=== PATIENT | female | born 1980 | race Caucasian/White ===

== ENCOUNTER 2019-05-25 16:48 | Outpatient (CLI) | payer OTHER, SELFPAY ==
--- NOTE | ~2019-05-25 | XR_ITS ---
EXAMINATION: XR chest 2V DATE: 05/25/2019 17:21 INDICATION: Shortness of breath and productive cough TECHNIQUE: PA and lateral views of the chest are obtained. COMPARISON: None available FINDINGS: The lungs are free of acute opacities. There is no pleural effusion or pneumothorax. The ca rdiomediastinal silhouette is normal. The visualized bones and soft tissues are unremarkable. IMPRESSION: 1. No acute cardiopulmonary abnormality. Reviewed, dictated and finalized at location A.
== END 2019-05-25 16:49 | disposition home or self-care (01) ==
PROVIDERS: Visit Provider Obstetrics & Gynecology
DX: R06.02 Shortness of breath (principal)
CPT/HCPCS: 71046

== ENCOUNTER 2019-06-04 13:39 | Observation (INO) | payer OTHER, SELFPAY ==
[2019-06-04] VITALS (43 sets, daily range): BP systolic 101–134; BP diastolic 61–75; PULSE 67–95; TEMP 36.7–37.1; O2SAT 96–100; BMI 47.7
--- NOTE | ~2019-06-04 | US_ITS ---
EXAMINATION: US OB limited w BPP DATE: 06/05/2019 08:20 INDICATION: decelerations during third trimester TECHNIQUE: Real-time pelvic ultrasound was performed. The interpreting radiologist was not present fo r the study. COMPARISON: None. FINDINGS: There is a single living fetus in vertex presentation. The placenta is fundal. heart rate is 13 8 beats per minute (bpm). The amniotic fluid index is 8.9 cm which is normal Biophysical profile performed by the technologist: breathing (30 sec sustained breathing in 30 minutes): 2 out of 2 movement (3 gross body movements in 30 minutes): 2 out of 2 tone (one episode of hkkuvzg-mvkzypkya-rwnrcyr limb movement): 2 out of 2 Amniotic fluid pocket (2 cm): 2 out of 2 Total score: 8 out of 8 IMPRESSION: 1. Single living fetus in vertex presentation. 2. Biophysical profile 8 out of 8. 3. Normal amniotic fluid index. Reviewed, dictated and finalized at location B.
--- NOTE | ~2019-06-04 | US_ITS ---
EXAMINATION: US OB limited w BPP DATE: 06/04/2019 15:25 INDICATION: Decelerations. Third trimester. TECHNIQUE: Real-time pelvic ultrasound was performed. COMPARISON: None. FINDINGS: There is a single living fetus in vertex presentation. The placenta is fundal. heart rate is 1 25 beats per minute (bpm). The amniotic fluid index is 16.6 cm, which is normal. Biophysical profile performed by the technologist: breathing (30 sec sustained breathing in 30 minutes): 2 out of 2 movement (3 gross body movements in 30 minutes): 2 out of 2 tone (one episode of wegfxsp-somlweutg-etufzae limb movement): 2 out of 2 Amniotic fluid pocket (2 cm): 2 out of 2 Total score: 8 out of 8 IMPRESSION: 1. Single living fetus in vertex presentation. 2. Biophysical profile 8 out of 8. Reviewed, dictated and finalized at location A.
--- NOTE | 2019-06-04 15:59 | PC.NURSE ---
[id number] US at bedside to perform BPP and FÉLIX
--- NOTE | 2019-06-04 17:24 | OBADM ---
This patient, Ally Ohara, admitted to the OB room Labor/Delivery/Recovery 102 for observation. Patient/family oriented to hospital policies and general routines including ID bracelet, bed and alarms, visiting hours, pain management, procedures, bathroom and other care routines, personal items, smoking policy, room service/diet, and visiting hours. Patient/Family are encouraged to report perceived risks to care and to ask questions if they do not understand what they are told or what they should do.
[2019-06-04 20:40] LABS: Glucose Point of Care 128 (65-105)
[2019-06-04] MEDS: BETAMETHASONE SOD PHOS/ACETATE 30 MG/5 ML VIAL 12 MG IM (21:57)
[2019-06-05] VITALS (264 sets, daily range): BP systolic 122–141; BP diastolic 82–91; PULSE 56–118; TEMP 36.9–37.1; O2SAT 90–100
[2019-06-05 07:17] LABS: Glucose Point of Care 95 (65-105)
--- NOTE | 2019-06-05 07:46 | WPDPN ---
Progress Note: A&P Assessment and Plan (1) Antepartum variable deceleration: Code(s): O36.8390 - Maternal care for abnormalities of the heart rate or rhythm, unspecified trimester, not applicable or unspecified Status: Acute Assessment and Plan: G1 at 34+3 with occasional decelerations (4 in last 16 hours or so). Since she is at risk for delivery, she is getting a course of steroids for lung maturity. First dose about 06/03. Plan to keep until second dose of steroids tonight. Repeat BPP and FÉLIX today. If status reassuring throughout today, will discharge home tonight. Next appointment in the office Wednesday 06/07 so keep that. Time Spent With Patient Time with patient: less than 15 minutes Review of Systems Review of Systems: All systems reviewed & are unremarkable except as noted in HPI and below Exam Const: General: no acute distress GI: Inspection: non-distended GI Palp: Yes Soft to palpation and No Tenderness to palpation present (GI) Other: gravid Extrem: General: no edema Psych: Mental Status: mental status grossly normal Objective Data Vital Signs Vital Signs: Vital Signs - 24 hr 06/04/19 14:04 06/04/19 14:31 06/04/19 15:01 Temperature Pulse Rate 79 67 70 Blood Pressure 122/75 113/72 113/75 Pulse Oximetry 06/04/19 15:31 06/04/19 16:01 06/04/19 16:30 Temperature Pulse Rate 76 68 74 Blood Pressure 114/71 108/71 101/64 Pulse Oximetry 06/04/19 18:00 06/04/19 19:01 06/04/19 20:00 Temperature Pulse Rate 83 77 95 Blood Pressure 117/66 116/65 134/68 Pulse Oximetry 06/04/19 20:40 06/04/19 21:01 06/04/19 21:33 Temperature 37.1 C Pulse Rate 73 Blood Pressure 108/75 Pulse Oximetry 98 06/04/19 21:38 06/04/19 21:43 06/04/19 21:48 Temperature Pulse Rate Blood Pressure Pulse Oximetry 99 98 98 06/04/19 21:53 06/04/19 21:58 06/04/19 22:03 Temperature Pulse Rate Blood Pressure Pulse Oximetry 99 98 99 06/04/19 22:08 06/04/19 22:13 06/04/19 22:18 Temperature Pulse Rate Blood Pressure Pulse Oximetry 98 99 98 06/04/19 22:23 06/04/19 22:28 06/04/19 22:33 Temperature Pulse Rate Blood Pressure Pulse Oximetry 98 100 98 06/04/19 22:38 06/04/19 22:43 06/04/19 22:48 Temperature Pulse Rate Blood Pressure Pulse Oximetry 97 96 100 06/04/19 22:49 06/04/19 22:53 06/04/19 22:58 Temperature Pulse Rate 76 Blood Pressure 114/61 Pulse Oximetry 98 97 06/04/19 23:00 06/04/19 23:03 06/04/19 23:08 Temperature 36.7 C Pulse Rate Blood Pressure Pulse Oximetry 98 99 06/04/19 23:13 06/04/19 23:18 06/04/19 23:23 Temperature Pulse Rate Blood Pressure Pulse Oximetry 96 97 98 06/04/19 23:28 06/04/19 23:33 06/04/19 23:38 Temperature Pulse Rate Blood Pressure Pulse Oximetry 97 97 97 06/04/19 23:43 06/04/19 23:48 06/04/19 23:53 Temperature Pulse Rate Blood Pressure Pulse Oximetry 97 98 97 06/04/19 23:58 06/05/19 00:03 06/05/19 00:08 Temperature Pulse Rate Blood Pressure Pulse Oximetry 97 97 98 06/05/19 00:13 06/05/19 00:18 06/05/19 00:23 Temperature Pulse Rate Blood Pressure Pulse Oximetry 98 98 99 06/05/19 00:28 06/05/19 00:33 06/05/19 00:34 Temperature Pulse Rate Blood Pressure Pulse Oximetry 98 99 97 06/05/19 00:39 06/05/19 00:44 06/05/19 00:49 Temperature Pulse Rate Blood Pressure Pulse Oximetry 98 99 98 06/05/19 00:54 06/05/19 00:59 06/05/19 01:04 Temperature Pulse Rate Blood Pressure Pulse Oximetry 98 99 98 06/05/19 01:09 06/05/19 01:17 06/05/19 01:22 Temperature Pulse Rate Blood Pressure Pulse Oximetry 98 97 98 06/05/19 01:27 06/05/19 01:32 06/05/19 01:37 Temperature Pulse Rate Blood Pressure Pulse Oximetry 99 99 99 06/05/19 01:42 06/05/19 01:47 06/05/19 01:52
--- NOTE | 2019-06-05 08:10 | PC.NURSE ---
0758 Pt transferred to radiology for US
[2019-06-05 10:28] LABS: Glucose Point of Care 106 (65-105)
[2019-06-05 14:30] LABS: Glucose Point of Care 111 (65-105)
[2019-06-05 19:22] LABS: Glucose Point of Care 114 (65-105)
--- NOTE | 2019-06-05 22:18 | PC.NURSE ---
Discharge instructions were reviewed with patient. Patient educated on labor symptoms and HIP precautions. Patient also educated on kick count. Discharge packet reviewed with patient, patient states understanding of discharge packet. Patient instructed to keep regular scheduled appointments. Patient states understanding and denies any questions.
--- NOTE | 2019-06-05 22:23 | PC.NURSE ---
Updated Dr. Gilmore on FHT strip with variable deceleration. VSS. No contractions noted via monitoring. Discharge orders given. Patient to follow-up as regularly scheduled on Saturday06/08/2019.
== END 2019-06-05 22:24 | disposition home or self-care (01) ==
PROVIDERS: Admitting Provider Obstetrics & Gynecology; Visit Provider Obstetrics & Gynecology
DX: O36.8330 Maternal care for abnormalities of the fetal heart rate or rhythm, third trimester, not applicable or unspecified (principal); Z3A.34 34 weeks gestation of pregnancy
CPT/HCPCS: 76815; 76819; 96372; G0378; G0379; J0702

== ENCOUNTER 2019-06-20 02:03 | Inpatient (IN) | payer OTHER, SELFPAY ==
[2019-06-20] VITALS (116 sets, daily range): BP systolic 93–156; BP diastolic 62–99; PULSE 71–124; RESP 18; TEMP 36.4–36.9; O2SAT 97–100
[2019-06-20 04:55] LABS: Basophils Percent Auto 0.3 % (0.2-1.2); Eosinophils Percent Auto 0.3 % (0-4.4); Hematocrit 35.3 % (37.0-47.0); Hemoglobin 11.5 g/dL (12.0-15.0); Immature Granulocyte Absolute 0.07 K/mm3 (0.00-0.031); Immature Granulocyte Percent A 0.6 % (0-0.5); Lymphocytes Absolute Auto 5.45 K/mm3 (0.9-3.2); Lymphocytes Percent Auto 47.1 % (18.3-44.2); Mean Corpuscular HGB Conc 32.6 g/dl (32-36); Mean Corpuscular Hemoglobin 30.4 pg (26-34); Mean Corpuscular Volume 93.4 fl (80-100); Mean Platelet Volume 12.2 fl (7.4-10.4); Monocytes Absolute Auto 0.6 K/mm3 (0.1-0.6); Monocytes Percent Auto 5.4 % (2.6-8.5); Neutrophils Absolute Auto 5.4 K/mm3 (1.3-6.7); Neutrophils Percent Auto 46.3 % (45.5-73.1); Platelet Count Result 106 k/mm3 (150-375); Red Blood Count 3.78 M/mm3 (4.2-5.4); Red Cell Distribution Width 23.1 % (11.5-14.5); White Blood Count 11.6 K/mm3 (4.5-10.0)
[2019-06-20] MEDS: LACTATED RINGERS 1,000 ML 125 ML IV CONT (05:08)
[2019-06-20] MEDS: AMPICILLIN 2 GM/NS 100 ML 2 GM/100 ML BAG IVPB (05:09)
[2019-06-20 05:10] LABS: Uric Acid 6.1 mg/dL (2.5-7.5)
[2019-06-20 05:16] LABS: Alanine Aminotransferase 19 U/L (4-35); Albumin Level 3.6 g/dL (3.5-5.1); Alkaline Phosphatase 194 U/L (38-126); Aspartate Amino Transferase 39 U/L (14-36); Bilirubin,Total 0.5 mg/dL (0.2-1.3); Blood Urea Nitrogen 9 mg/dL (7-17); Carbon Dioxide 17 mmol/L (22-30); Chloride 110 mmol/L (98-107); Estimated Glomerular Filt Rate > 60; Glucose 81 mg/dL (65-105); Potassium 4.3 mmol/L (3.4-5.0); Sodium 133 mmol/L (137-145)
[2019-06-20] MEDS: OXYTOCIN 30 UNITS/NS 500 ML 30 UNITS/500 ML BAG 6 UNITS IV CONT (05:50)
--- NOTE | 2019-06-20 07:00 | WPDANESEPPF ---
Anes - Initial Pre Proc Eval Date/Time: 06/20/19 0700 Surgeon: Kitty Adler MD Pre Op Diagnosis: SROM Patient Data Age: 39 Gender: F Height: Weight: Last Vital Signs Temp 36.4 C L 06/20/19 10:00 Pulse 81 06/20/19 10:46 BP 133/80 06/20/19 10:46 Pulse Ox 100 06/20/19 10:49 Allergies Allergy/AdvReac Type Severity Reaction Status Date / Time No Known Allergies Allergy Unverified 03/19/12 17:49 Laboratory Tests 06/20/19 06/20/19 06/20/19 04:35 04:35 04:35 WBC 11.6 K/mm3 H K/mm3 (4.5-10.0) RBC 3.78 M/mm3 L M/mm3 (4.2-5.4) Hgb 11.5 g/dL L g/dL (12.0-15.0) Hct 35.3 % L % (37.0-47.0) MCV 93.4 fl fl (80-100) MCH 30.4 pg pg (26-34) MCHC 32.6 g/dl g/dl (32-36) RDW 23.1 % H % (11.5-14.5) Plt Count 106 k/mm3 L k/mm3 (150-375) MPV 12.2 fl H fl (7.4-10.4) Immature Gran % (Auto) 0.6 % H % (0-0.5) Neut % (Auto) 46.3 % % (45.5-73.1) Lymph % (Auto) 47.1 % H % (18.3-44.2) Levy % (Auto) 5.4 % % (2.6-8.5) Eos % (Auto) 0.3 % % (0-4.4) Baso % (Auto) 0.3 % % (0.2-1.2) Lymph # (Auto) 5.45 K/mm3 H K/mm3 (0.9-3.2) Levy # (Auto) 0.6 K/mm3 K/mm3 (0.1-0.6) Eos # (Auto) 0.0 K/mm3 K/mm3 (0-0.3) Baso # (Auto) 0.0 K/mm3 K/mm3 (0.0-0.1) Abs Immat Gran (auto) 0.07 K/mm3 H K/mm3 (0.00-0.031) Absolute Neuts (auto) 5.4 K/mm3 K/mm3 (1.3-6.7) Absolute Nucleated RBC 0.0 K/mm3 K/mm3 (0.0-0.012) Nucleated RBC % 0.0 % % (0.0-0.2) Sodium Potassium Chloride Carbon Dioxide BUN Creatinine Estim Creat Clear Calc Estimated GFR Glucose POC Capillary Glucose Uric Acid 6.1 mg/dL mg/dL (2.5-7.5) Calcium Total Bilirubin AST ALT Alkaline Phosphatase Total Protein Albumin RPR Pending Blood Type Antibody Screen 06/20/19 06/20/19 06/20/19 04:35 04:35 09:12 WBC RBC Hgb Hct MCV MCH MCHC RDW Plt Count MPV Immature Gran % (Auto) Neut % (Auto) Lymph % (Auto) Levy % (Auto) Eos % (Auto) Baso % (Auto) Lymph # (Auto) Levy # (Auto) Eos # (Auto) Baso # (Auto) Abs Immat Gran (auto) Absolute Neuts (auto) Absolute Nucleated RBC Nucleated RBC % Sodium 133 mmol/L L mmol/L (137-145) Potassium 4.3 mmol/L mmol/L (3.4-5.0) Chloride 110 mmol/L H mmol/L (98-107) Carbon Dioxide 17 mmol/L L mmol/L (22-30) BUN 9 mg/dL mg/dL (7-17) Creatinine 0.50 mg/dL L mg/dL (0.7-1.0) Estim Creat Clear Calc Not Reportable Estimated GFR > 60 (59 - ) Glucose 81 mg/dL mg/dL (65-105) POC Capillary Glucose 84 mg/dl mg/dl (65-105) Uric Acid Calcium 9.0 mg/dL mg/dL (8.4-10.2) Total Bilirubin 0.5 mg/dL mg/dL (0.2-1.3) AST 39 U/L H U/L (14-36) ALT 19 U/L U/L (4-35) Alkaline Phosphatase 194 U/L H U/L (38-126) Total Protein 7.0 g/dL g/dL (6.3-8.2) Albumin 3.6 g/dL g/dL (3.5-5.1) RPR Blood Type O Positive Antibody Screen Negative Patient hx anesthesia problems: none Family hx anesthesia problems: none PMFSH Past Medical History Medical History (Updated 06/20/19 @ 10:50 by Damian Williamson, RON) Gestational nura
--- NOTE | 2019-06-20 08:21 | LDADM ---
This patient, Ally Ohara, was admitted to Labor/Delivery/Recovery 107 on 06/20/19 at 02:03. Plans for labor, pain management and were discussed with patient. Patient/family oriented to hospital policies and general routines including ID bracelet, bed and alarms, visiting hours, pain management, procedures, bathroom and other care routines, personal items, smoking policy, room service/diet and guest tray routines, security routines, and visiting hours. Patient/Family are encouraged to report perceived risks to care and to ask questions if they do not understand what they are told or what they should do. See OBIX for further documentation.
--- NOTE | 2019-06-20 08:26 | WPDANESEPP ---
Anes - Eval Pre Procedure Procedure: labor epidural Date/Time: 06/20/19 08:26 Surgeon: Vitor Preop Diagnosis: Labor pain Pre Op Diagnosis: SROM Patient Data Age: 39 Gender: F Height: Weight: Last Vital Signs Temp 36.6 C 06/20/19 05:55 Pulse 90 06/20/19 08:25 BP 138/85 06/20/19 08:25 Allergies Allergy/AdvReac Type Severity Reaction Status Date / Time No Known Allergies Allergy Unverified 03/19/12 17:49 Laboratory Tests 06/20/19 06/20/19 06/20/19 04:35 04:35 04:35 WBC 11.6 K/mm3 H K/mm3 (4.5-10.0) RBC 3.78 M/mm3 L M/mm3 (4.2-5.4) Hgb 11.5 g/dL L g/dL (12.0-15.0) Hct 35.3 % L % (37.0-47.0) MCV 93.4 fl fl (80-100) MCH 30.4 pg pg (26-34) MCHC 32.6 g/dl g/dl (32-36) RDW 23.1 % H % (11.5-14.5) Plt Count 106 k/mm3 L k/mm3 (150-375) MPV 12.2 fl H fl (7.4-10.4) Immature Gran % (Auto) 0.6 % H % (0-0.5) Neut % (Auto) 46.3 % % (45.5-73.1) Lymph % (Auto) 47.1 % H % (18.3-44.2) Larue % (Auto) 5.4 % % (2.6-8.5) Eos % (Auto) 0.3 % % (0-4.4) Baso % (Auto) 0.3 % % (0.2-1.2) Lymph # (Auto) 5.45 K/mm3 H K/mm3 (0.9-3.2) Larue # (Auto) 0.6 K/mm3 K/mm3 (0.1-0.6) Eos # (Auto) 0.0 K/mm3 K/mm3 (0-0.3) Baso # (Auto) 0.0 K/mm3 K/mm3 (0.0-0.1) Abs Immat Gran (auto) 0.07 K/mm3 H K/mm3 (0.00-0.031) Absolute Neuts (auto) 5.4 K/mm3 K/mm3 (1.3-6.7) Absolute Nucleated RBC 0.0 K/mm3 K/mm3 (0.0-0.012) Nucleated RBC % 0.0 % % (0.0-0.2) Sodium Potassium Chloride Carbon Dioxide BUN Creatinine Estim Creat Clear Calc Estimated GFR Glucose Uric Acid 6.1 mg/dL mg/dL (2.5-7.5) Calcium Total Bilirubin AST ALT Alkaline Phosphatase Total Protein Albumin RPR Pending 06/20/19 04:35 WBC RBC Hgb Hct MCV MCH MCHC RDW Plt Count MPV Immature Gran % (Auto) Neut % (Auto) Lymph % (Auto) Larue % (Auto) Eos % (Auto) Baso % (Auto) Lymph # (Auto) Larue # (Auto) Eos # (Auto) Baso # (Auto) Abs Immat Gran (auto) Absolute Neuts (auto) Absolute Nucleated RBC Nucleated RBC % Sodium 133 mmol/L L mmol/L (137-145) Potassium 4.3 mmol/L mmol/L (3.4-5.0) Chloride 110 mmol/L H mmol/L (98-107) Carbon Dioxide 17 mmol/L L mmol/L (22-30) BUN 9 mg/dL mg/dL (7-17) Creatinine 0.50 mg/dL L mg/dL (0.7-1.0) Estim Creat Clear Calc Not Reportable Estimated GFR > 60 (59 - ) Glucose 81 mg/dL mg/dL (65-105) Uric Acid Calcium 9.0 mg/dL mg/dL (8.4-10.2) Total Bilirubin 0.5 mg/dL mg/dL (0.2-1.3) AST 39 U/L H U/L (14-36) ALT 19 U/L U/L (4-35) Alkaline Phosphatase 194 U/L H U/L (38-126) Total Protein 7.0 g/dL g/dL (6.3-8.2) Albumin 3.6 g/dL g/dL (3.5-5.1) RPR Patient hx anesthesia problems: none Family hx anesthesia problems: none [facility] Social History Social History Smoking status: Never smoker Exam Day of Procedure 06/20/19 08:26
[2019-06-20] MEDS: AMPICILLIN 1 GM/NS 50 ML 1 GM/50 ML BAG IVPB ×2 (09:14→13:07)
[2019-06-20 09:23] LABS: Glucose Point of Care 84 (65-105)
[2019-06-20] MEDS: ONDANSETRON INJ 4 MG/2 ML VIAL IV PUSH (12:26)
--- NOTE | 2019-06-20 13:02 | P.HPUP_ITS ---
History and Physical Update Update Date/Time: 06/20/19 13:02 39 yo G1 who presents for labor/srom. She has no o ther complaints. She reports good movement,. Denies bleeding. Augemented. Reassuring FHt's History and Physical has been reviewed, including an updated exam of the pa tient. There are NO changes in the patient's condition. Risks, benefits, and alternatives have been discussed and questions answered. Patient agrees to proceed with procedure.
--- NOTE | 2019-06-20 14:01 | PM.OBPRVD ---
OB - Delivery Note Procedure Delivery date: 06/20/19 events: Gestational Diabetes Intrapartal events: None Delivery augmentation: pitocin Delivery monitor: external FHT and external uterine Route of delivery: Laceration description: Perineal - 2nd Degree Delivery repair: vicryl Specimen: Yes Estimated blood loss (mL): 250 Anesthesia type: Epidural Disposition: floor Complications: none [place] Baby Date of : 06/20/19 Time of : 13:31 Weeks of gestation at delivery: 36 gender: Female Weight (pounds): 4 presentation: vertex Placenta delivery description: Spontaneous cord vessel description: 3 Vessels score one minute: 9 score five minutes: 9
[2019-06-20] MEDS: OXYTOCIN 30 UNITS/NS 500 ML 30 UNITS/500 ML BAG 125 UNITS IV CONT (14:49)
[2019-06-20] MEDS: WITCH HAZEL 40 PADS 1 PAD TOPICAL (19:09)
[2019-06-20] MEDS: BENZOCAINE 20% AER SPR (*SP) 56 GM CAN 1 SPRAY TOPICAL (19:10)
--- NOTE | 2019-06-20 19:14 | PC.NURSE ---
Patient transferred to post room #290 via wheel chair. Support person present. Oriented to unit, room, information board, rooming in, admission packet and security measures. Patient verbalizes understanding.
[2019-06-20] MEDS: IBUPROFEN 600 MG TABLET PO (19:36)
[2019-06-21 06:12] LABS: Basophils Percent Auto 0.3 % (0.2-1.2); Eosinophils Percent Auto 0.3 % (0-4.4); Hematocrit 33.2 % (37.0-47.0); Hemoglobin 10.6 g/dL (12.0-15.0); Immature Granulocyte Absolute 0.07 K/mm3 (0.00-0.031); Immature Granulocyte Percent A 0.7 % (0-0.5); Lymphocytes Absolute Auto 3.64 K/mm3 (0.9-3.2); Lymphocytes Percent Auto 36.1 % (18.3-44.2); Mean Corpuscular HGB Conc 31.9 g/dl (32-36); Mean Corpuscular Hemoglobin 30.1 pg (26-34); Mean Corpuscular Volume 94.3 fl (80-100); Mean Platelet Volume 11.5 fl (7.4-10.4); Monocytes Absolute Auto 0.5 K/mm3 (0.1-0.6); Monocytes Percent Auto 5.4 % (2.6-8.5); Neutrophils Absolute Auto 5.8 K/mm3 (1.3-6.7); Neutrophils Percent Auto 57.2 % (45.5-73.1); Platelet Count Result 101 k/mm3 (150-375); Red Blood Count 3.52 M/mm3 (4.2-5.4); Red Cell Distribution Width 23.6 % (11.5-14.5); White Blood Count 10.1 K/mm3 (4.5-10.0)
--- NOTE | 2019-06-21 08:09 | WPDANLDPN2 ---
Anes-Prog Note L&D Date/Time: 06/21/19 08:09 Comfortable throughout: labor and delivery Neuraxial method: epidural Epidural/Spinal procedure site: clean & non-tender Neuro status: Neuro function grossly intact. Cardiovascular status: normal Respiratory status: normal Airway patency: baseline Mental status: baseline Post-Op hydration status: normal Vital Signs: Last Vital Signs Temp 36.9 C 06/20/19 19:45 Pulse 97 06/20/19 19:45 Resp 18 06/20/19 19:45 BP 133/90 06/20/19 19:45 Pulse Ox 100 06/20/19 19:45 Pain score (VAS): 0/10. Patient resting in bed at time of assessment, appears comfortable. Support person at bedside. Post-procedural complaints: none Patient feedback: Patient satisfied with anesthetic care.
[2019-06-21 08:42] VITALS: BP 139/85; PULSE 93; RESP 18; TEMP 36.5
[2019-06-21] MEDS: IBUPROFEN 600 MG TABLET PO ×2 (08:46→15:56)
--- NOTE | 2019-06-21 12:20 | P.PNOB_ITS ---
OB - PN: Subj Subjective Date/time seen: 06/21/19 12:20 Patient comments: no complaints, pain well controlled, incisional pain, tolerating diet and flatus present OB - PN: Obj Data Labs CBC & Chem 7: 06/21/19 05:51 06/20/19 04:35 Labs: Laboratory Results - last 24 hr 06/21/19 05:51 WBC 10.1 H RBC 3.52 L Hgb 10.6 L Hct 33.2 L MCV 94.3 MCH 30.1 MCHC 31.9 L RDW 23.6 H Plt Count 101 L MPV 11.5 H Immature Gran % (Auto) 0.7 H Neut % (Auto) 57.2 Lymph % (Auto) 36.1 [place] % (Auto) 5.4 Eos % (Auto) 0.3 Baso % (Auto) 0.3 Lymph # (Auto) 3.64 H [place] # (Auto) 0.5 Eos # (Auto) 0.0 Baso # (Auto) 0.0 Abs Immat Gran (auto) 0.07 H Absolute Neuts (auto) 5.8 Absolute Nucleated RBC 0.0 Nucleated RBC % 0.0 OB - PN A/P Plan day: 2 Plan: routine care Comments: POD#2 LTCS - no problems, Time Spent With Patient Time: Total time spent is greater than 50% in coordination of care (as documented) at patient's floor/unit and/or counseling patient: Exam Const: General: comfortable, no acute distress and alert Resp: Effort & Inspection: normal respiratory effort Auscultation: no crackles, no rales and no rhonchi Cardio: Rate: regular rate Heart sounds: no click, no murmurs and no rubs GI: Inspection: non-distended GI Palp: No Tenderness to palpation present (GI) Auscultation: normal bowel sounds Other: Incision - CDI Extrem: General: normal to inspection, no pedal edema and no calf tenderness
[2019-06-21] MEDS: DOCUSATE SODIUM 100 MG CAPSULE PO (15:56)
[2019-06-21 19:30] VITALS: BP 119/79; PULSE 111; RESP 18; TEMP 36.6; O2SAT 100
[2019-06-22 07:45] VITALS: BP 134/79; PULSE 92; RESP 18; TEMP 37.2; O2SAT 100
--- NOTE | 2019-06-22 07:49 | PM.OBPNVD ---
OB - PN: Subj Subjective Date/time seen: 06/22/19 07:49 OB - PN: Obj Data Labs CBC & Chem 7: 06/21/19 05:51 06/20/19 04:35 OB - PN A/P Plan day: 2 Plan: routine care Comments: Repeat [facility] labs. My preference would be a 72 hour stay. Will await lab results. Time Spent With Patient Time: Total time spent is greater than 50% in coordination of care (as documented) at patient's floor/unit and/or counseling patient: Review of Systems Review of Systems: All systems reviewed & are unremarkable except as noted in HPI and below Exam Narrative: Exam Narrative: Fundus firm and vaginal flow controlled. 1+ edema. DTR normal. Neg homans. No redness or warmth. Const: General: comfortable Resp: Effort & Inspection: normal respiratory effort Cardio: Rate: regular rate Psych: Appearance: grossly normal Affect: normal affect Attitude: cooperative Judgement: Good judgement present (Psych)
[2019-06-22] MEDS: DOCUSATE SODIUM 100 MG CAPSULE PO (08:30)
[2019-06-22] MEDS: IBUPROFEN 600 MG TABLET PO (08:43)
[2019-06-22 08:50] LABS: Basophils Percent Auto 0.3 % (0.2-1.2); Eosinophils Absolute Auto 0.1 K/mm3 (0-0.3); Eosinophils Percent Auto 0.7 % (0-4.4); Hematocrit 31.6 % (37.0-47.0); Hemoglobin 10.1 g/dL (12.0-15.0); Immature Granulocyte Percent A 1.4 % (0-0.5); Lymphocytes Absolute Auto 2.19 K/mm3 (0.9-3.2); Lymphocytes Percent Auto 30.7 % (18.3-44.2); Mean Corpuscular Hemoglobin 30.5 pg (26-34); Mean Corpuscular Volume 95.5 fl (80-100); Mean Platelet Volume 10.6 fl (7.4-10.4); Monocytes Absolute Auto 0.4 K/mm3 (0.1-0.6); Monocytes Percent Auto 5.5 % (2.6-8.5); Neutrophils Absolute Auto 4.4 K/mm3 (1.3-6.7); Neutrophils Percent Auto 61.4 % (45.5-73.1); Platelet Count Result 109 k/mm3 (150-375); Red Blood Count 3.31 M/mm3 (4.2-5.4); Red Cell Distribution Width 23.2 % (11.5-14.5); White Blood Count 7.1 K/mm3 (4.5-10.0)
[2019-06-22 09:02] LABS: Alanine Aminotransferase 17 U/L (4-35); Albumin Level 3.4 g/dL (3.5-5.1); Alkaline Phosphatase 142 U/L (38-126); Aspartate Amino Transferase 29 U/L (14-36); Bilirubin,Total 0.4 mg/dL (0.2-1.3); Blood Urea Nitrogen 5 mg/dL (7-17); Calcium 8.7 mg/dL (8.4-10.2); Carbon Dioxide 19 mmol/L (22-30); Chloride 111 mmol/L (98-107); Estimated Glomerular Filt Rate > 60; Glucose 76 mg/dL (65-105); Potassium 3.7 mmol/L (3.4-5.0); Sodium 135 mmol/L (137-145); Uric Acid 6.2 mg/dL (2.5-7.5)
[2019-06-22 09:25] LABS: Rapid Plasma Reagin Non-Reactive (NonReactive)
[2019-06-24 10:53] VITALS: BP 134/88; PULSE 114; RESP 18; TEMP 37; O2SAT 100
--- NOTE | 2019-07-08 21:56 | PM.OBDSVD ---
DS: Diagnosis Admitting Diagnosis Admitting Diagnosis: Encounter for supervision of normal , unspecified, third trimester Discharge Diagnosis (1) Gestational diabetes: Code(s): O24.419 - Gestational diabetes mellitus in , unspecified control Status: Acute (2) Term : Code(s): Z34.90 - Encounter for supervision of normal , unspecified, unspecified trimester Status: Acute (3) Premature rupture of membranes (PROM), onset of labor after 24 hours, antepartum, : Code(s): O42.119 - premature rupture of membranes, onset of labor more than 24 hours following rupture, unspecified trimester Status: Acute OB - DS: Summary OB Procedures : NST and Ultrasound OB Procedures Intrapartum: Spontaneous Vag Delivery OB Procedures: : None Peripartum Data Infant Delivery Method: Natural Vaginal Laceration description: None Status at Discharge Functional status at discharge: independent ambulation Time Spent with Patient Time attestation: Total time spent providing and/or coordinating discharge services: Time spent: Less than 30 minutes DS: Data Data Completed and Pending Completed studies during hospitalization: Pending at discharge 06/20/19 13:46 Surgical [PTH] Routine Discharge Plan Discharge Consulting providers: Adelaida Lindsay ; Wayne Tan Discharging Clinician: Adelaida Lindsay Patient Disposition: Home, Self-Care Activity: may shower, may drive after 2 weeks and pelvic rest Diet: regular Discharge Instructions: Education: Mom and Baby Guide Given to: Mother Follow-Up: Call your delivering provider's office for an appointment to be seen in: 1 Week Mom and baby should come to the [facility] for the follow-up appointment. Appointment Date/Time: June 24, 2019 at 11:00 am What to expect at your follow-up visit: Physical Assessment Call [phone] if you are unable to keep your appointment time. EPISIOTOMY/PERINEAL CARE: 1. Until bleeding stops, use your rozina bottle after urinating 2. Change your pad frequently throughout the day 3. You may take sitz baths several times a day (fill your bathtub with warm water and soak for 20 minutes.) Do NOT bathe in the water 4. No tub baths until seen by your physician - You may shower ACTIVITY: 1. Rest as much as possible. 2. Do not exercise or lift anything heavier than your baby (such as laundry or other children.) 3. Avoid stairs or driving as much as possible. 4. Do not put anything into the vagina. No douching, tampons, or sexual activity until seen by physician. NOTIFY PHYSICIAN IF YOU HAVE ANY QUESTIONS OR IF ANY OF THE FOLLOWING SYMPTOMS OCCUR: 1. If your episiotomy becomes red, swollen, or more painful than what you have experienced in the hospital. 2. If your vaginal bleeding becomes foul smelling. 3. If your vaginal bleeding becomes more heavy than a period or if your bleeding changes from pink to bright red. However, you may pass an occasional walnut-sized clot once or twice for the first week . 4. If you experience a sharp, shooting pain in you calves. 5. If you discover a hard, reddened area on your breast or if you experience flu-like symptoms. DIET: 1. Eat regular, well-balanced meals. 2. Drink plenty of fluids daily. If , drink to thirst. Stand Alone Forms: General Discharge Information Follow-up/Referrals: Kitty Adler MD [Physician] - 1 Week Date of admission: 06/20/19 02:03 Primary Care Provider: Jeana,Leigh Peterson Admitting Provider: Kitty Adler Discharge Date/Time: 06/22/19 14:36 Attending physician on admission: Kitty Adler
== END 2019-06-22 14:36 | disposition home or self-care (01) | DRG 807 ==
LOC: ANHLDR 13:51 → ANHOB2 19:17
PROVIDERS: Advanced Practice Midwife; Admitting Provider Obstetrics & Gynecology; PCP Family Medicine; Visit Provider Obstetrics & Gynecology
DX: O60.14X0 Preterm labor third trimester with preterm delivery third trimester, not applicable or unspecified (principal); Z37.0 Single live birth; Z3A.36 36 weeks gestation of pregnancy; Z23 Encounter for immunization; O24.429 Gestational diabetes mellitus in childbirth, unspecified control; O76 Abnormality in fetal heart rate and rhythm complicating labor and delivery; O70.1 Second degree perineal laceration during delivery; O99.214 Obesity complicating childbirth; E66.9 Obesity, unspecified; O99.824 Streptococcus B carrier state complicating childbirth
CPT/HCPCS: 36415; 80053; 84550; 85025; 86592; 86850; 86900; 86901; 88307; A9270; J0290; J2405; J2590; J2795; J7120

== ENCOUNTER 2020-04-28 10:35 | Emergency (ER) | payer OTHER, SELFPAY ==
--- NOTE | ~2020-04-28 | CT_ITS ---
EXAMINATION: CT ankle LT wo con DATE: 04/28/2020 14:11 INDICATION: Left ankle pain post fall TECHNIQUE: High resolution computed tomography (CT) of the left ankle was performed without intraveno us contrast. Additional sagittal and coronal reconstructions were performed. Automated exposure contr ol and iterative reconstruction technique were employed. The dose-length product was 470.70 mGy-cm. COMPARISON: Radiographs dated 04/28/2020 FINDINGS: Again seen is an oblique coronally oriented intra-articular fracture of the distal left tibia. The fr acture extends from the posterior metadiaphyseal region anterior and inferiorly to extend across the anterior articular surface of the tibial plafond. There is minimal posterior superior subluxation yanna ng the fracture plane resulting in up to one cortical width step-off along the posterior cortex but n o significant fracture gap or incongruity at the articular surface. There is an additional small sagi ttally oriented fracture at the anteromedial aspect of the tibial plafond. There is mild lateral disp lacement of the small anterolateral fragment resulting in up to 5 mm fracture gap at the articular co rtex. No other fractures identified. The medial and lateral malleoli remain in normal alignment with respect to the talar dome with a congruent ankle mortise. Normal alignment and joint spaces in the vi sualized mid and hindfoot. Small Achilles and plantar calcaneal spurs. Small bone island at the later al cuneiform. Mild soft tissue swelling about medial and lateral malleoli extending inferiorly about the heel. No ankle joint effusion. IMPRESSION: 1. Mild likely comminuted intra-articular fracture of the distal left tibia. Reviewed, dictated and finalized at location A. NATURALIST
--- NOTE | ~2020-04-28 | XR_ITS ---
XR ankle LT min 3V DATE: 04/28/2020 12:25 INDICATION: Fall. Left ankle pain. TECHNIQUE: 3 views COMPARISON: None FINDINGS: There is a minimally displaced intra-articular fracture of the distal tibia, extending from the diametaphyseal area into the tibiotalar joint . The fibula appears intact. Ankle mortise is maintained. Mild posterior and more prominent plantar calcaneal enthesopathy. IMPRESSION: Minimally displaced in particular fracture of the distal tibia Reviewed, dictated and finalized at location B. T OPERATIONS COORDINATOR
--- NOTE | ~2020-04-28 | XR_ITS ---
XR tibia fibula LT 2V DATE: 04/28/2020 14:19 INDICATION: Fall, injury. Pain. TECHNIQUE: AP and lateral views COMPARISON: April 28, 2020 left ankle FINDINGS: There is approximately one cortical width posterolateral displacement at a linear intra-art icular fracture of the distal tibia. Normal alignment at the knee and ankle joints. Posterior splint. Plantar and posterior calcaneal enthesopathy. IMPRESSION: Approximately one cortical width posterolateral displacement of a particular fracture of the distal tibia Reviewed, dictated and finalized at location B. ING HOME ADMISSIONS DIRECTOR IMPRESSION: Approximately one cortical width posterolateral displacement of a p articular fracture of the distal tibia
[2020-04-28 10:43] VITALS: BP 170/94; PULSE 107; RESP 17; TEMP 36.6; O2SAT 100
--- NOTE | 2020-04-28 14:27 | ED.GENADULT ---
HPI - General Adult General Chief complaint: Extremity Injury, Lower Stated complaint: left ankle injury Time Seen by Provider: 04/28/20 12:05 Source: patient Mode of arrival: ambulatory Limitations: no limitations History of Present Illness HPI narrative: Patient is a 39-year-old female who presents with left lower extremity injury after slipping on the ice and injuring the leg patient presents with moderate aching pain along the medial aspect of the left lower extremity just above the ankle patient denies other injuries or complaints presents in no distress has not had anything for her symptoms Related Data Allergies Allergy/AdvReac Type Severity Reaction Status Date / Time No Known Allergies Allergy Verified 04/28/20 10:46 Review of Systems Review of Systems: All systems reviewed & are unremarkable except as noted in HPI and below PMFSH Past Medical History Medical History (Updated 04/28/20 @ 14:30 by Amari Zelaya PA-C) Gestational diabetes Obesity Social History Social History Smoking status: Never smoker Gender identity (if verbalized by the patient): Female Exam Narrative: Exam Narrative: GENERAL: Well-appearing, obese, and in no acute distress. HEAD: Normocephalic, atraumatic. EYES: PERRLA and EOMI. ENT: Nares clear, no rhinorrhea or epistaxis. Mucous membranes moist. CHEST: Clear to auscultation. No respiratory distress. No wheezes rales or rhonchi HEART: Regular rate and rhythm. No murmur heard. Normal peripheral pulses. EXTREMITIES: Tenderness of the ankle joint along the medial aspect and just above no tenderness of the knee SKIN: Warm, dry, no rash. NEURO: No focal deficits. Alert and oriented x3. Neurovascularly intact. Cap refill less than 2 seconds PSYCH: Normal mood and affect. Course Consultations Consultation #1: Discussed case with orthopedist who evaluated the patient in the emergency department with plans to go to the operating room tomorrow for repair of her tibial fracture Date: 04/28/20 Time: 14:29 Vital Signs Vital signs: Vital Signs Temperature 97.8 F 04/28/20 10:43 Pulse Rate 107 H 04/28/20 10:43 Respiratory Rate 17 04/28/20 10:43 Blood Pressure 170/94 H 04/28/20 10:43 Pulse Oximetry 100 04/28/20 10:43 Temperature 97.8 F 04/28/20 10:43 Pulse Rate 107 H 04/28/20 10:43 Respiratory Rate 17 04/28/20 10:43 Blood Pressure 170/94 H 04/28/20 10:43 Pulse Oximetry 100 04/28/20 10:43 Medical Decision Making MDM Narrative Medical decision making narrative: Patients injury or pain is consistent with musculoskeletal etiology. No signs of neurological or vascular compromise on exam. Compartments and tisues are soft without signs of compartment syndrome. Patient placed in a short leg splint will be admitted to orthopedic surgery Vital Signs Vital Signs: Vital Signs Temperature 97.8 F 04/28/20 10:43 Pulse Rate 107 H 04/28/20 10:43 Respiratory Rate 17 04/28/20 10:43 Blood Pressure 170/94 H 04/28/20 10:43 Pulse Oximetry 100 04/28/20 10:43 Temperature 97.8 F 04/28/20 10:43 Pulse Rate 107 H 04/28/20 10:43 Respiratory Rate 17 04/28/20 10:43 Blood Pressure 170/94 H 04/28/20 10:43 Pulse Oximetry 100 04/28/20 10:43 Imaging Data Radiologist's impression: ITS Impressions Ankle X-Ray 04/28/20 12:31 IMPRESSION: Minimally displaced in particular fracture of the distal tibia Ankle CT 04/28/20 14:16 IMPRESSION: 1. Mild likely comminuted intra-articular fracture of the distal left tibia. Tibia/Fibula X-Ray 04/28/20 14:21 IMPRESSION: Approximately one cortical width posterolateral displacement of a particular fracture of the distal tibia Discharge Plan Discharge Clinical Impression: Closed fracture of left ankle Patient Disposition: Still a Patient Condition: Stable Follow-up/Referrals: Jeana,Leigh Peterson MD [Pr
[2020-04-28] MEDS: MORPHINE SULFATE (*CRX) 4 MG/ML INJ IV PUSH (14:30)
--- NOTE | 2020-04-28 15:53 | PM.CNOR ---
Assessment and Plan Assessment and plan (1) Pilon fracture of left tibia: Qualifiers: Encounter type: initial encounter Fracture type: closed Fracture alignment: displaced Qualified Code(s): S82.872A - Displaced pilon fracture of left tibia, initial encounter for closed fracture Code(s): S82.872A - Displaced pilon fracture of left tibia, initial encounter for closed fracture Status: Acute Assessment and Plan: New patient evaluation for chief complaint left ankle fracture. Patient seen in the emergency room. Fracture extends into the articular surface. There is displacement. History, physical exam and radiographs reviewed with the patient. Discussed the condition, nature, etiology and course of natural history with the patient. Treatment options including surgical and nonoperative treatment were reviewed. Risks and benefits of each as well as alternatives reviewed. The patient's questions were answered. Recommend admit to the hospital for further care of the left ankle and plan for definitive treatment with internal fixation. Non operative treatment also reviewed with the patient. Long-term affects and problems with injury reviewed. Patient has declined admittance to the hospital at this time. She states are personal things that she needs to take care of. She would like to follow up next week and proceed from there. She has been splinted by the emergency room. Discussed nonweightbearing status. Use of pain medication reviewed. Edema control instructions given. Patient is to follow up next week in the orthopedic office. Conservative treatment ice, compression and elevation. (2) Fall due to ice or snow: Qualifiers: Encounter type: initial encounter Qualified Code(s): W00.9XXA - Unspecified fall due to ice and snow, initial encounter Code(s): W00.9XXA - Unspecified fall due to ice and snow, initial encounter Status: Acute History of Present Illness HPI Consult date: 04/28/20 Requesting physician: Amari Zelaya PA-C Consult reason: fracture (Left ankle) Chief complaint: left ankle injury Narrative: 39-year-old woman foot slipped on ice at home this morning injured left ankle. Unable to bear weight on the ankle. Was brought to the emergency room. Radiographs showed left distal tibia fracture. I have been asked see the patient for further treatment and to assess whether patient needs to be admitted. Patient complains of left ankle pain. She denies any other injury at the time of her fall. Denies loss of consciousness head, neck or back injury. Denies any prior problems with the left ankle foot. She was usual state of activity prior to the injury with independent ambulation without assistive devices. At this time pain is left ankle but denies numbness or tingling. Denies calf pain. Review of Systems Constitutional: Constitutional: Denies fever(s) Eyes: Eyes: Denies blurry vision ENT: Reports Normal hearing present Cardiovascular: Cardiovascular: Denies chest pain and Denies dyspnea Respiratory: Respiratory: Denies dyspnea and Denies wheezing Gastrointestinal: Gastrointestinal: Denies abdominal pain Genitourinary: Genitourinary: Denies urinary urgency Musculoskeletal: Musculoskeletal: Reports as per HPI and Denies numbness Integumentary/Breasts: Skin/Breast: Denies changing lesions and Denies sores Neurologic: Reports Normal hearing present, Denies behavioral changes, Denies confusion, Denies numbness and Denies convulsions Psychiatric: Psychiatric: Reports anxiety, Denies behavioral changes, Denies confusion and Denies hallucinations Endocrine: Endocrine: Denies heat intolerance Hematologic/Lymphatic: Hematologic/Lymphatic: Denies easy bleeding Allergic/Immunologic: Allergic/Immunologic: Denies wheezing [facility] Past Medical History Medical History Gestational diabetes Obesity Social Histor
== END 2020-04-28 15:40 | disposition home or self-care (01) ==
PROVIDERS: Emergency Provider Emergency Medicine; PCP Family Medicine
DX: S82.892A Other fracture of left lower leg, initial encounter for closed fracture (principal); W00.9XXA Unspecified fall due to ice and snow, initial encounter
CPT/HCPCS: 29515; 73590; 73610; 73700; 96374; 99284; J2270

== ENCOUNTER → 2020-04-30 07:13 | Outpatient (CLI) | payer OTHER, SELFPAY ==
[2020-04-30 19:10] LABS: SARS-CoV-2 RNA PCR Negative
== END ==
PROVIDERS: PCP Family Medicine; Visit Provider Orthopaedic Surgery
DX: Z01.812 Encounter for preprocedural laboratory examination (principal); Z20.822 Contact with and (suspected) exposure to COVID-19
CPT/HCPCS: C9803; U0003; U0005

== ENCOUNTER 2020-05-03 13:56 | Observation (INO) | payer OTHER, SELFPAY ==
[2020-04-29 15:57] VITALS: BMI 45.9
--- NOTE | 2020-05-02 09:46 | P.PNAN_ITS ---
Anes - Initial Pre Proc Eval Procedure: Operation Date: 05/03/20 14:00 Proposed Procedures p Open Reduction Internal Fixation Left Ankle Fracture - Edgar Garrett MD Date/Time: 05/02/20 09:46 Surgeon: Edgar Garrett MD Pre Op Diagnosis: Left Ankle Fracture Patient Data Age: 40 Gender: F Height: 1.52 m Weight: 106.7 kg Allergies Allergy/AdvReac Type Severity Reaction Status Date / Time No Known Allergies Allergy Verified 05/03/20 12:06 Home Medications Medication Instructions Recorded Confirmed Type alprazolam 0.25 mg PO PRN PRN 04/29/20 04/29/20 History hydrocodone 5 mg-acetaminophen 325 1 tablet PO Q4H PRN #20 tablet 04/29/20 05/03/20 Rx mg tablet sertraline 50 mg PO HS 04/29/20 05/03/20 History Patient hx anesthesia problems: none Family hx anesthesia problems: none [facility] Past Medical History Medical History (Updated 05/03/20 @ 12:20 by Wayne Tan DO) Anxiety Fall due to ice or snow Gestational diabetes Obesity Pilon fracture of left tibia Social History Social History Smoking status: Never smoker Living arrangements: with family Gender identity (if verbalized by the patient): Female Spiritual care concerns: No Anes - Eval Final PreProcedure Day of Procedure 05/02/20 09:46 Patient weight: morbidly obese Heart: regular rate and rhythm Lungs: clear to auscultation and normal air movement Airway: Mallampati scale class III Neurological: alert and oriented Last oral intake: >/= 8 hours ASA classification: III Emergent: no Anesthetic plan: proceed Anesthesia type and monitoring: general LMA and standard monitoring Informed Consent: The patient's anesthetic plan and its attendant risks and benefits were discussed with the patient/family/POA. Questions were solicited and answers provided to the satisfaction of the patient/family/POA.
--- NOTE | 2020-05-02 11:00 | PM.IMHP ---
H&P: HPI History of Present Illness Date/Time: 05/02/20 11:00 Chief Complaint: Left ankle fracture Narrative: Ally Ohara is a 40 year old female fell on the ice twisting the left ankle. Patient initially evaluated in the emergency room and found to have left distal tibia fracture which was splinted. She presents now for operative treatment. No interim changes or complaints. She denies numbness or tingling. Review of Systems Constitutional: Constitutional: Denies fever(s) Eyes: Eyes: Denies blurry vision ENT: Reports Normal hearing present Cardiovascular: Cardiovascular: Denies chest pain and Denies dyspnea Respiratory: Respiratory: Denies dyspnea and Denies wheezing Gastrointestinal: Gastrointestinal: Denies abdominal pain Genitourinary: Genitourinary: Denies urinary urgency Musculoskeletal: Musculoskeletal: Reports as per HPI and Denies numbness Integumentary/Breasts: Skin/Breast: Denies changing lesions and Denies sores Neurologic: Reports Normal hearing present, Denies behavioral changes, Denies confusion, Denies numbness and Denies convulsions Psychiatric: Psychiatric: Reports anxiety, Denies behavioral changes, Denies confusion and Denies hallucinations Endocrine: Endocrine: Denies heat intolerance Hematologic/Lymphatic: Hematologic/Lymphatic: Denies easy bleeding Allergic/Immunologic: Allergic/Immunologic: Denies wheezing PMFSH Past Medical History Medical History Fall due to ice or snow Gestational diabetes Obesity Pilon fracture of left tibia Social History Social History Smoking status: Never smoker Gender identity (if verbalized by the patient): Female Spiritual care concerns: No Meds Home Medications and Allergies Home Medications Medication Instructions Recorded Confirmed Type alprazolam 0.25 mg PO PRN PRN 04/29/20 04/29/20 History hydrocodone 5 mg-acetaminophen 325 1 tablet PO Q4H PRN #20 tablet 04/29/20 04/29/20 Rx mg tablet sertraline 50 mg PO HS 04/29/20 04/29/20 History Allergies Allergy/AdvReac Type Severity Reaction Status Date / Time No Known Allergies Allergy Verified 04/29/20 16:03 Exam Const: General: No confusion Orientation/consciousness: No confusion HENMT: Head: normal to inspection, normocephalic and atraumatic Eyes: Conjunctivae: conjunctivae normal Sclera: sclerae normal Neck: Neck: supple and nontender Chest: Chest palpation & inspection: normal inspection of the chest Resp: Effort & Inspection: normal respiratory effort and no audible wheezes Cardio: Rate: regular rate Rhythm: regular rhythm : General: Yes deferred Skin: General skin exam: no rashes or lesions noted Neuro: General: No confusion Extrem: General: capillary refill normal Right upper extremity: normal to inspection Left upper extremity: normal to inspection Right lower extremity: normal to inspection and hip/thigh Details: normal to inspection Left lower extremity: hip/thigh Details: normal to inspection, knee Details: abnormal ROM ( range of motion deferred secondary to fracture), ankle (no calf tenderness) Details: abnormal to inspection Details: other ( Short-leg splint in place), tenderness ( lateral malleolus, anterior ankle and medial ankle), swelling ( moderate anterior ankle, moderate lateral ankle), abnormal ROM ( Minimal motion secondary to fracture), ecchymosis, crepitus, achilles tendon exam abnormal and other ( good capillary refill in toes, 2+ DP pulse, light touch sensation intact) and foot Details: normal capillary refill, toes with normal ROM, vascular exam Details: normal capillary refill ( all toes) and motor-sensory exam light-touch normal in all toes Psych: Affect: normal affect Assessment and Plan Assessment and plan (1) Pilon fracture of left tibia: Qualifiers: Encounter type: initial encounter [facility]
[2020-05-03] VITALS (8 sets, daily range): BP systolic 114–134; BP diastolic 65–89; PULSE 93–107; RESP 10–20; TEMP 35.9–36.9; O2SAT 94–99
--- NOTE | ~2020-05-03 | XR_ITS ---
EXAMINATION: XR surgery orthopedic DATE: 05/03/2020 15:05 INDICATION: ORIF left ankle fracture TECHNIQUE: 3 fluoroscopic images of the left ankle were obtained during procedure performed by Dr. Ravi grijalva. Radiologist was not present for the imaging or procedure. The amount of fluoroscopy time used during this procedure was 1.1 minutes. COMPARISON: CT dated 04/28/2020 FINDINGS: Interval reduction to essentially anatomic alignment of the oblique coronal intra-articular fracture at the distal left tibia. The fracture is now fixed with 3 anterior to posteriorly directed cannulated lag screws the tips of which extend a short distance beyond the posterior cortex. Ankle m ortise is congruent with normal joint space. Remainder of the visualized hindfoot is unremarkable. No other fractures identified. IMPRESSION: 1. Near-anatomic alignment post reduction and internal fixation of an oblique coronal intra-articular fracture of the distal left tibia. Reviewed, dictated and finalized at location A. SPRING TRUER IMPRESSION: 1. Near-anatomic alignment post reduction and internal fixation of an oblique c oronal intra-articular fracture of the distal left tibia.
[2020-05-03] MEDS: LACTATED RINGERS 1,000 ML 30 ML IV CONT ×2 (12:47→15:32)
[2020-05-03] MEDS: KETOROLAC 15 MG/ML VIAL (*BKC) IV PUSH (12:47)
[2020-05-03] MEDS: ACETAMINOPHEN 500 MG TABLET 1000 MG PO (13:01)
--- NOTE | 2020-05-03 13:14 | WPDHPUPDATE1 ---
History and Physical Update Update Date/Time: 05/03/20 13:14 History and Physical has been reviewed, including an updated exam of the patient. There are NO changes in the patient's condition. Covid test negative. Risks, benefits, and alternatives have been discussed and questions answered. Patient agrees to proceed with procedure.
[2020-05-03] MEDS: ceFAZolin 2 GM/D5W 50 ML 2 GM/50 ML BAG IVPB (13:52)
--- NOTE | 2020-05-03 13:57 | PM.PROC ---
Procedure Note - Detailed Date of procedure: 05/03/20 Pre-op diagnosis: Left Ankle Fracture Post-op diagnosis: same Procedure performed: ORIF Left ankle fracture Description of procedure: Operative indications: Patient is a 40 year-old woman who sustained an injury to the left ankle. Radiographs show distal tibia weightbearing portion fracture with posterior subluxation of the ankle mortise. Patient presents for operative treatment. Full discussion of the risks, benefits and alternatives of surgery was had with the patient. Questions answered. Patient verbalizes understanding and wishes to proceed. What was done: After informed consent, the operative extremity was marked in the preoperative holding area. Patient received intravenous antibiotics. Patient was then taken to the operating room and underwent general anesthesia by the anesthesia team. They were positioned supine on the operating room table. A time-out was performed confirming the patient, site of the surgery, operative plan. Lower extremity then prepped and draped in the usual sterile surgical fashion using ChloraPrep skin solution. Foot and ankle exsanguinated and a thigh tourniquet inflated to 250 mmHg. Longitudinal incision made over the medial distal tibia with a 15 blade knife. Hemostasis controlled electrocautery. Dissection carried down to the medial aspect of the tibia and the periosteum incised in line with skin incision. [place] elevator was able to be placed into the posterior malleolus fracture which allowed the fracture to be mobilized. Fracture cleared of debris and irrigated and suctioned out. Posterior malleolus piece reduced into position and held with a bone-holding clamp. Fixation achieved with 4.0 mm partially-threaded cannulated screws. Three of these used with good fixation noted. Screws were placed from anterior to posterior through stab incision at the anterior aspect using fluoroscopy for guidance. Anterior incisions made with 15 blade knife and blunt dissection of the soft tissue down to the anterior tibia. Soft tissue protectors were placed. The wounds were then thoroughly irrigated and closed with 2 Vicryl interrupted suture for the deep tissue, 3 0 Monocryl interrupted suture for the subcutaneous tissue and skin closed with 4 O nylon interrupted suture. Stress of the ankle performed with good stability of the ankle mortise in all directions. Sterile dressings applied. Padded splint then applied. Good capillary refill noted in the toes. Palpable dorsalis pedis pulse prior to placement of the dressing. Patient awoken from anesthesia, extubated and taken to the recovery room in stable condition. All sponge, needle and instrument counts correct at the end of the case. Palpable dorsalis pedis pulse noted prior to dressing. Implants: 4.0mm screws x 3 Anesthesia: GLMA Surgeon: Edgar Garrett MD Machine Deburrer: 1st Machine Deburrer Estimated blood loss (mL): 100 Tourniquet time (min): 15 Drains: No Packing: No Pathology: none sent Complications: None Condition: stable Disposition: PACU
[2020-05-03] MEDS: BUPIVACAINE HCL 0.5% PF 30 ML VIAL INFILTRATE (14:33)
--- NOTE | 2020-05-03 15:16 | SUR.OPER ---
EBL 100
--- NOTE | 2020-05-03 15:54 | PCPTNOTE ---
Spoke w/ LINER WORKER, pt is still in recovery awaitiing bed placement. Will see pt tomorrow.
[2020-05-03] MEDS: fentaNYL CITRATE INJ (*CRX) 100 MCG/2 ML VIAL 25 MCG IV PUSH ×2 (16:16→16:20)
--- NOTE | 2020-05-03 18:22 | ADMGEN ---
This patient, Ally Ohara, was admitted to Medical Room 245-. Patient/family oriented to hospital policies and general routines including ID bracelet, bed and alarms, visiting hours, pain management, procedures, bathroom and other care routines, personal items, smoking policy, room service/diet, and visiting hours. Information on how to activate the Rapid Response Team has been discussed. Patient/Family are encouraged to report perceived risks to care and to ask questions if they do not understand what they are told or what they should do.
[2020-05-03] MEDS: KCL 20 MEQ/D5/0.45% SOD CHL 1,000 ML 80 ML IV CONT (18:36)
[2020-05-03] MEDS: DOCUSATE SODIUM 100 MG CAPSULE PO (18:36)
[2020-05-03] MEDS: HYDROcodone/acetaminophen (*CRX) 7.5-325 MG TABLET 1 TAB PO (19:04)
[2020-05-03] MEDS: SERTRALINE HCL 50 MG TABLET PO (20:06)
[2020-05-03] MEDS: FAMOTIDINE 20 MG TABLET PO (20:06)
[2020-05-04 02:00] VITALS: BP 124/79; PULSE 85; RESP 21; TEMP 36.3; O2SAT 100
[2020-05-04] MEDS: HYDROcodone/acetaminophen (*CRX) 7.5-325 MG TABLET 1 TAB PO ×3 (02:29→09:42)
[2020-05-04 06:00] VITALS: BP 122/65; PULSE 93; RESP 20; TEMP 36.1; O2SAT 98
--- NOTE | 2020-05-04 08:03 | WPDANESPN ---
Anes - Prog Note Post-Op Date/Time: 05/04/20 08:03 Cardiovascular status: normal Respiratory status: normal Airway patency: baseline Mental status: baseline Post-Op hydration status: normal Vital Signs: Last Vital Signs Temp 36.3 C L 05/04/20 02:00 Pulse 85 05/04/20 02:00 Resp 21 H 05/04/20 02:00 BP 124/79 05/04/20 02:00 Pulse Ox 100 05/04/20 02:00 Pain Score (VAS): 3 I/O: Intake & Output 05/03/20 05/04/20 05/04/20 23:59 07:59 15:59 Intake Total 450 50 Balance 450 50 Post-procedural complaints: none Patient Feedback: Patient satisfied with anesthetic care.
[2020-05-04 09:36] VITALS: O2SAT 94
[2020-05-04] MEDS: DOCUSATE SODIUM 100 MG CAPSULE PO (09:43)
[2020-05-04] MEDS: FAMOTIDINE 20 MG TABLET PO (09:43)
[2020-05-04] MEDS: IBUPROFEN IV 800 MG/200 ML 800 MG/200 ML BAG 400 MG IVPB (10:57)
--- NOTE | 2020-05-04 11:59 | PM.DS ---
DS: Admitting Diagnosis Admitting Diagnosis Admitting Diagnosis: Left distal tibia weight-bearing fracture DS: Discharge Diagnosis Discharge Diagnosis (1) Pilon fracture of left tibia: Qualifiers: Encounter type: subsequent encounter Fracture type: closed Fracture alignment: displaced Fracture healing: with routine healing Qualified Code(s): S82.872D - Displaced pilon fracture of left tibia, subsequent encounter for closed fracture with routine healing Code(s): S82.872A - Displaced pilon fracture of left tibia, initial encounter for closed fracture Status: Acute Assessment and Plan: patient mid for observation status post open reduction internal fixation left distal tibia fracture. Pain control and physical therapy and occupational therapy for assistance with transfers and crutches nonweightbearing left leg. Patient is stable for discharge. Splint in place left leg. Cleared by therapy for use of walker or crutches with nonweightbearing. Edema control, pain medication prescribed. Follow up in orthopedic office next week. DS: Summary Hospital Course Reason for hospitalization: Left ankle fracture Hospital Course: 40-year-old woman taken to the operating room on May 03, underwent open reduction internal fixation left distal tibia fracture. Admitted to the hospital postoperatively for observation, pain control and therapy. Did well following surgery. Pain was controlled, tolerating regular diet, voiding. Cleared by Physical and Occupational therapy for discharge. Status at Discharge Cognitive/behavioral status at discharge: Alert and oriented x3 Functional status at discharge: uses cane/walker ( walker/crutches) Overall status at discharge: patient is not back to baseline Time Spent with Patient Time attestation: Total time spent providing and/or coordinating discharge services: Specific discharge activities: nonweightbearing left leg. Crutches or walker for ambulation. Exam Const: General: No confusion Orientation/consciousness: No confusion HENMT: Head: normal to inspection, normocephalic and atraumatic Eyes: Conjunctivae: conjunctivae normal Sclera: sclerae normal Neck: Neck: supple and nontender Chest: Chest palpation & inspection: normal inspection of the chest Resp: Effort & Inspection: normal respiratory effort and no audible wheezes Cardio: Rate: regular rate Rhythm: regular rhythm : General: Yes deferred Skin: General skin exam: no rashes or lesions noted Neuro: General: No confusion Extrem: General: capillary refill normal Right upper extremity: normal to inspection Left upper extremity: normal to inspection Right lower extremity: normal to inspection and hip/thigh Details: normal to inspection Left lower extremity: hip/thigh Details: normal to inspection, knee Details: abnormal ROM ( range of motion deferred secondary to fracture), ankle (no calf tenderness) Details: abnormal to inspection Details: other ( Short-leg splint in place), tenderness ( lateral malleolus, anterior ankle and medial ankle), swelling ( moderate anterior ankle, moderate lateral ankle), abnormal ROM ( Minimal motion secondary to fracture), ecchymosis, crepitus, achilles tendon exam abnormal and other ( good capillary refill in toes, 2+ DP pulse, light touch sensation intact) and foot Details: normal capillary refill, toes with normal ROM, vascular exam Details: normal capillary refill ( all toes) and motor-sensory exam light-touch normal in all toes Psych: Affect: normal affect Discharge Plan Discharge Attending physician on discharge: Edgar Garrett Discharging Clinician: Edgar Garrett Anticipated Discharge Date/Time: 05/04/20 11:00 Patient Disposition: Home, Self-Care Activity: follow weight bearing status Diet: regular Wound Care Instructions: keep dressing dry and other - see discharge instructions Discharge Instructions:
== END 2020-05-04 11:56 | disposition home or self-care (01) ==
LOC: ANHSURGERY 16:29 → ANH2MED 17:27
PROVIDERS: Admitting Provider Orthopaedic Surgery; PCP Family Medicine; Visit Provider Orthopaedic Surgery
PROC: (CPT 27827; principal; 2020-05-03 14:00)
DX: S82.872A Displaced pilon fracture of left tibia, initial encounter for closed fracture (principal); W00.9XXA Unspecified fall due to ice and snow, initial encounter
CPT/HCPCS: 27827; 96365; 96375; 97161; 97165; 97535; A9270; C1713; C1769; G0378; J0690; J1100; J1170; J1741; J1885; J2250; J2405; J2704; J3010; J3480; J7120

== ENCOUNTER 2022-05-01 09:52 | Outpatient (CLI) | payer OTHER, SELFPAY ==
--- NOTE | 2022-05-01 11:00 | NEURO_ITS ---
Impression: # Complains of numbness of right hand. # Mild right Carpal Tunnel Syndrome. 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 # Normal needle/EMG exam. Motor Nerve Conduction Upper Extremities Median Nerve Conduction Velocity (m/sec) Terminal Latency (msec) Response Voltage(mV) Elbow-Wrist Wrist Elbow Wrist Right 46 3.5 2 2 Left Ulnar Nerve Conduction Velocity (m/sec) Terminal Latency (msec) Response Voltage(mV) Above Elbow Below Elbow Wrist Above Elbow Below Elbow Wrist Right 60 2.2 4 5 Left F-Wave Latency Median (ms) Ulnar (ms) Right 26.0 24.6 Left Sensory Nerve Conduction Upper Extremities Median Nerve Stimulation Terminal Latency (msec) Wrist/Digit Response Voltage (uV) Wrist Right 3.5/3.5 28/16 Left Ulnar Nerve Stimulation Terminal Latency (msec) Wrist/Digit Response Voltage (uV) Wrist Right 2.0 68 Left Radial Nerve Terminal Latency (msec) Response Voltage(mV) Right 2.1 15 Left Left Right Muscles Examined Fibrillation Fasciculation Scarcity Voltage Duration Left Right Left Right Left Right Left Right Left Right Deltoid Biceps X Brachioradialis Triceps X Pronator Teres X Ext Indicis X Ext Digitorum X Abd Poll Brev X 1st Dorsal Interosseus Paraspinals MTDD
== END 2022-05-01 09:53 | disposition home or self-care (01) ==
LOC: ANHNEURO 09:53
PROVIDERS: PCP Family Medicine; Visit Provider Nurse Practitioner Family
DX: G56.01 Carpal tunnel syndrome, right upper limb (principal)
CPT/HCPCS: 95886; 95909

== ENCOUNTER 2024-02-11 11:16 | Outpatient (CLI) | payer OTHER, SELFPAY ==
--- NOTE | ~2024-02-11 | MM_ITS ---
EXAMINATION: MM screening jing BI w dominic HISTORY: Screening TECHNIQUE: Craniocaudal and mediolateral oblique 3-D tomosynthesis images were obtained and synthetic 2-D images were generated. CAD analysis was submitted and interpreted. COMPARISON: No prior mammogram is available for comparison at this institution. BREAST PARENCHYMAL COMPOSITION: Not dense: There are scattered areas of fibroglandular density. FINDINGS: There is no evidence of suspicious mass, calcification, or architectural distortion to sugg est malignancy in either breast. There has been no suspicious interval change. IMPRESSION: 1. No mammographic evidence of malignancy. 2. Recommend routine screening mammography in one year. BI-RADS Category 1: Negative Reviewed, dictated and finalized at location [facility]. [facility]
== END 2024-02-11 11:17 | disposition home or self-care (01) ==
LOC: MICIMG 11:18
PROVIDERS: PCP Student in an Organized Health Care Education/Training Program; Visit Provider Student in an Organized Health Care Education/Training Program
DX: Z12.31 Encounter for screening mammogram for malignant neoplasm of breast (principal)
CPT/HCPCS: 77063; 77067

== ENCOUNTER 2024-02-25 01:18 | Day surgery (SDC) | payer OTHER, SELFPAY ==
[2024-02-19 08:10] VITALS: BMI 45.2
--- NOTE | 2024-02-19 08:22 | PC.NURSE ---
Report to the Outpatient Waiting Room, entrance under the green pavilion located off [facility], at time _0700 on date _02/25/24_. Planned Procedure Time: _0900_.? Time changes happen often and if your time is changed the preop area will call you the afternoon before. - You and your visitor will be asked to self-screen and do not enter if you have any COVID symptoms. Please call surgeon if you need to reschedule. - A mask is optional within the hospital at this time. Patients may have clear liquids (water, carbonated beverages, clear teas, apple juice) until 3 hours prior to surgery with a maximum of 20 ounces. - No food from midnight until time of surgery and no smoking. This includes no chewing gum, candy or mints. - Infants may have breast milk until 4 hours before surgery, formula 6 hours prior to surgery. - Children will be allowed to drink immediately following surgery.? If applicable, please bring a bottle or sippy cup to assist with drinking. Juice, water, soda, and popsicles are readily available.? For infants on formula, please bring formula the day of surgery.? Pacifiers are allowed. Take only the following medications with a SIP of water on the morning of surgery: ALPRAZOLAM IF NEEDED DO NOT STOP ANY OF YOUR OTHER PRESCRIPTION MEDICATIONS PRIOR TO SURGERY EXCEPT THE FOLLOWING Medications to discontinue per physician NONE Date to take last dose Please no make-up, nail pitcairn islander, hairspray, perfume, deodorant, or body powder the day of surgery.? No jewelry (including any body piercings) or valuables the day of surgery, leave them at home.? Please take a shower or bath the night before, or the morning of, surgery with an antibacterial soap.? Wear comfortable, loose fitting clothing.? Children are encouraged to wear pajamas. - Jewelry must be removed prior to entering the operating room.? Rings and piercings that are not removed may be cut off. - The hospital will not accept responsibility for valuables.? - Please leave all valuables, including medications, at home the day of surgery. If you are going home after surgery, a licensed services delivery driver must drive you home.? - NO public transportation without another adult if you receive anesthesia. - We recommend that an adult stay with you for 24 hours following discharge. - We also recommend that you do not drive, make important decision, drink alcoholic beverages, or take any drugs that were not prescribed by your health care provider for at least 24 hours after your discharge time. For Pediatric surgeries, we recommend two adults accompany the child home. Follow any additional instructions given to you from your surgeon. Telephone instructions given to _PATIENT_and asked if any additional questions and then verbalized understanding. Patient advised to call surgeon office or pre surgery nurse liaison [phone] if any additional questions.
[2024-02-25] VITALS (8 sets, daily range): BP systolic 98–165; BP diastolic 63–91; PULSE 71–103; RESP 10–18; TEMP 36.4–37.4; O2SAT 93–100
--- NOTE | 2024-02-25 07:58 | WPDANESEPPF ---
Anes - Initial Pre Proc Eval Procedure: Operation Date: 02/25/24 09:00 Proposed Procedures p Hysteroscopy, Micki Endometrial Ablation, Laparoscopic Bilateral Salpingectomy - Jose Adler MD Date/Time: 02/25/24 07:58 Surgeon: Jose Adler MD Pre Op Diagnosis: menorrhagia, sterilization Patient Data Age: 43 Gender: F Height: 1.52 m Weight: 105 kg Allergies Allergy/AdvReac Type Severity Reaction Status Date / Time No Known Allergies Allergy Verified 02/25/24 07:58 Home Medications ?Medication ?Instructions ?Recorded ?Confirmed ?Type alprazolam 0.25 mg tablet 0.25 mg PO PRN PRN Anxiety 04/29/20 02/19/24 History sertraline 50 mg tablet 50 mg PO HS 04/29/20 02/19/24 History Patient hx anesthesia problems: none Family hx anesthesia problems: none Results Review: All pre-operative results and documents have been reviewed as part of the pre-operative evaluation. FOR[facility]LY [facility] Past Medical History Medical History (Updated 02/25/24 @ 07:58 by Ankush Tom MD) Morbid obesity Wears glasses Anxiety Fall due to ice or snow Pilon fracture of left tibia Gestational diabetes Surgical History Surgical History History of ankle surgery 2020, Dr. Garrett Family History Family History Other Alopecia Arthritis High cholesterol Hypertension Raynauds syndrome Scleroderma Social History Social History Smoking status: Never smoker Alcohol intake: current Alcohol use details: RARE- 5 PER YR Substance use: never Substance use type: does not use Living arrangements: with family Gender identity (if verbalized by the patient): Female Spiritual care concerns: No Anes - Eval Final PreProcedure Day of Procedure 02/25/24 07:58 Patient weight: morbidly obese Heart: regular rate and rhythm Lungs: clear to auscultation Airway: Mallampati scale class III Neurological: alert and oriented Last oral intake: >/= 8 hours ASA classification: III Emergent: no Anesthetic plan: proceed Anesthesia type and monitoring: general ETT and standard monitoring Results Review: All pre-operative results and documents have been reviewed as part of the pre-operative evaluation. Informed Consent: The patient's anesthetic plan and its attendant risks and benefits were discussed with the patient/family/POA. Questions were solicited and answers provided to the satisfaction of the patient/family/POA.
--- NOTE | 2024-02-25 08:14 | P.HP_ITS ---
H&P: HPI History of Present Illness Date/Time: 02/25/24 08:14 Chief Complaint: Heavy vaginal bleeding Narrative: This patient is a 43-year-old female with severe menorrhagia and unwanted fertility. We have agreed to perform endometrial ablation with hysteroscopy, laparoscopic bilateral salpingectomy, IUD removal. The patient understands the details of the procedure. The procedure has been explained in detail. She understands the risks. She understands that injuries may occur that result in hospitalization, more surgery, and severe illness. She understands risk of hemorrhage and infection. She denies any chest pain or shortness of breath. She denies any nausea, vomiting, fever, chills. Review of Systems Review of Systems: All systems reviewed & are unremarkable except as noted in HPI and below Constitutional: Constitutional: Denies chills, Denies fatigue, Denies fever(s) and Denies weakness Eyes: Eyes: Denies blurry vision, Denies change in vision, Denies loss of peripheral vision, Denies loss of vision, Denies other visual disturbances and Denies eye pain ENT: Denies vertigo, Denies dizziness, Denies hearing loss, Denies mouth pain, Denies nasal obstruction, Denies neck mass and Denies neck pain Cardiovascular: Cardiovascular: Denies chest pain, Denies diaphoresis, Denies syncope, Denies leg edema and Denies dyspnea Respiratory: Respiratory: Denies chest congestion, Denies cough, Denies hemoptysis, Denies dyspnea and Denies wheezing Gastrointestinal: Gastrointestinal: Denies abdominal pain, Denies constipation, Denies diarrhea, Denies nausea and Denies vomiting Genitourinary: Genitourinary: Denies hematuria, Denies change in libido, Denies nocturia, Denies genital lesions, Denies flank pain and Denies urinary urgency Musculoskeletal: Musculoskeletal: Denies abnormal gait, Denies back pain, Denies myalgias, Denies arthralgias, Denies joint swelling, Denies muscle weakness and Denies neck pain Integumentary/Breasts: Skin/Breast: Denies swelling, Denies breast pain, Denies breast mass, Denies dry skin, Denies nipple discharge, Denies unusual bruising and Denies jaundice Neurologic: Denies Neuro-related abnormal movements, Denies Abnormal speech present, Denies abnormal gait, Denies behavioral changes, Denies confusion, Denies vertigo, Denies dizziness, Denies syncope, Denies loss of vision, Denies memory loss, Denies convulsions and Denies weakness Psychiatric: Psychiatric: Denies abnormal sleep pattern, Denies behavioral changes, Denies change in libido, Denies confusion, Denies depression, Denies anhedonia and Denies memory loss Endocrine: Endocrine: Reports no additional endocrine complaints, Denies change in libido and Denies fatigue Hematologic/Lymphatic: Hematologic/Lymphatic: Reports no additional hematologic/lymphatic complaints Allergic/Immunologic: Allergic/Immunologic: Reports no additional allergic/immunologic complaints and Denies wheezing PMFSH Past Medical History Medical History (Updated 02/25/24 @ 08:15 by Jose Adler MD) Morbid obesity Wears glasses Anxiety Fall due to ice or snow Pilon fracture of left tibia Gestational diabetes Surgical History Surgical History History of ankle surgery 2020, Dr. Garrett Family History Family History Other Alopecia Arthritis High cholesterol Hypertension Raynauds syndrome Scleroderma Social History Social History Smoking status: Never smoker Alcohol intake: current Alcohol use details: RARE- 5 PER YR Substance use: never Substance use type: does not use Living arrangements: with family Gender identity (if verbalized by the patient): Female Spiritual care concerns: No Meds Home Medications and Allergies Home Medications ?Medication ?Instructions ?Recorded ?Confirmed ?Type alprazolam 0.25 mg tablet 0.25 mg PO PRN PRN Anxiety 04/29/20 02/19/24 History sertraline 50 mg tablet 50 mg PO HS 04/29/20 02/25/24 History Allergies Allergy/AdvReac Type Severity Reaction Status Date / Time No Known Allergies Allergy Verified 02/25/24 07:58 Exam Const: General: cooperative, healthy appearing, comfortable and no acute d istress Orientation/consciousness: oriented to person, oriented to place and oriented to time HENMT: Head: normal to inspection Ears: external ears normal Face/Nose/Sinus: Normal external nose present and normal facial exam Face and sinus: normal facial exam Eyes: General: appearance normal, both eyes and all related structures Neck: Neck: normal visual inspection, trachea midline and supple Resp: Auscultation: clear to auscultation bilaterally, no crackles, no rales, no rhonchi and no wheezes Cardio: Rate: regular rate Rhythm: regular rhythm Heart sounds: no cl ick, no murmurs and no rubs GI: GI Palp: No abdominal tenderness, No Soft to palpation, No Tenderness to palpation present (GI) and No Palpable mass present Auscultation: normal bowel sounds Skin: General skin exam: normal color and no rashes or lesions noted Neuro: General: oriented to person, oriented to place and oriented to time Extrem: General: normal to inspection, no joint enlargement, no clubbing, cyanosis or edema, no pedal edema and no calf tenderness Psych: Appearance: grossly normal Mental Status: mental status grossly normal Speech and movement: Normal speech and movement present Assessment and Plan Assessment and plan (1) Menorrhagia: Code(s): N92.0 - Excessive and frequent menstruation with regular cycle Status: Acute (2) Unwanted fertility: Code(s): Z30.09 - Encounter for other general counseling and advice on contraception Status: Acute Plan This patient is a 43-year-old female with severe menorrhagia and unwanted fertility. We have agreed to perform endometrial ablation with hysteroscopy, laparoscopic bilateral salpingectomy, IUD removal. She understands the risks, benefits, and alternatives. She has completed informed consent process is ready to proceed.
--- NOTE | 2024-02-25 08:15 | WPDHPUPDATE1 ---
History and Physical Update Update Date/Time: 02/25/24 08:15 History and Physical has been reviewed, including an updated exam of the patient. There are NO changes in the patient's condition. Risks, benefits, and alternatives have been discussed and questions answered. Patient agrees to proceed with procedure.
[2024-02-25] MEDS: KETOROLAC 15 MG/ML VIAL (*BKC) IV PUSH (08:25)
[2024-02-25] MEDS: ACETAMINOPHEN 500 MG TABLET 1000 MG PO (08:25)
[2024-02-25] MEDS: LACTATED RINGERS 1,000 ML 30 ML IV CONT (08:27)
[2024-02-25 08:59] LABS: BEDSIDEPREGUCG Negative (Negative)
--- NOTE | 2024-02-25 09:30 | P.OP_ITS ---
Procedure Note - Detailed Date of Procedure 02/25/24 Pre-op Diagnosis menorrhagia, sterilization Post-op Diagnosis Same Procedure Performed Laparoscopic bilateral salpingectomy with endometrial ablation and hysteroscopy. IUD removal Surgeon Jose Adler MD Anesthesia General Indications Menorrhagia, female sterilization Findings Normal uterus tubes and ovaries, normal vulva, vagina, cervix. Normal appearing endometrium and endometrial cavity Description of Procedure Patient was taken the operating room. She has prepped draped in the dorsal lithotomy position after induction of general anesthesia. A 5 mm abdominal incision was made in left upper quadrant of the abdomen with scalpel. A 5 mm trocars inserted the intra-abdominal cavity under direct visualization of the scope. Pneumoperitoneum was achieved. A 5 mm periumbilical incision was made using a scalpel on the abdominal scan. A 5 mm trocar was inserted the intra- abdominal cavity under visualization of the scope. A 5 mm incision made left lower quadrant of the abdomen. A 5 mm trocar was inserted the intra-abdominal cavity and direct visualization of the scope. The bilateral fallopian tubes were removed. The paratubal tissue in the area of the uterus was grasped with the LigaSure cautery and transected after being cauterized. The paratubal tissue from the ovary to the uterine cornu was cauterized and transected with LigaSure cautery. This was all done in a bilateral fashion. The tube was transected at the area of the uterine cornua and the tubes was removed through the 5 mm trocar site. The pneumoperitoneum was reduced. The trocars were removed. The skin was closed with subcuticular 4 Monocryl and covered with Dermabond. Our attention was then turned to the endometrial ablation portion of the procedure. A speculum was placed in the vagina. The cervix was grasped with a tenaculum. The IUD was removed with a packing forceps. The cervix was dilated to approximately 8 mm with Gill dilators. The hysteroscope was inserted. And the below findings were noted. All of the intrauterine surfaces were curettaged with a medium-size curette and the specimens were collected. Measurements of the cervix were taken using the uterine sound and the hysteroscope. The intrauterine cavity measurements were entered into the handpiece. The device was inserted into the intrauterine cavity and the array was expanded. The balloon cuff was inflated. When an adequate seal was formed the safety and energy cycles were initiated and completed. The array was collapsed, the balloon was deflated. The insert was withdrawn. The hysteroscope was reinserted and a well desiccated intrauterine cavity was observed. The patient was taken recovery room stable condition. Sponge lap and needle counts were correct x2. She tolerated the procedure well. Pathology Yes Complications No immediate complications Condition Stable Disposition PACU
[2024-02-25] MEDS: oxyCODONE HCL (*CRX) 5 MG TAB IR PO (10:40)
== END 2024-02-25 11:25 | disposition home or self-care (01) ==
PROVIDERS: PCP Student in an Organized Health Care Education/Training Program; Visit Provider Obstetrics & Gynecology
PROC: 0UDB8ZZ Extraction of Endometrium, Via Natural or Artificial Opening Endoscopic (ICD-10-PCS; CPT 58558; principal; 2024-02-25 09:00)
DX: N92.0 Excessive and frequent menstruation with regular cycle (principal); Z30.2 Encounter for sterilization; E66.01 Morbid (severe) obesity due to excess calories; Z68.42 Body mass index [BMI] 45.0-49.9, adult
CPT/HCPCS: 58563; 58661; 58301; 88302; 88305; A9270; J0330; J1100; J1885; J2003; J2250; J2405; J2704; J3010; J7120